=== PATIENT | male | born 1960 | race Caucasian/White ===

== ENCOUNTER 2022-06-26 10:12 | Emergency (ER) | payer BC ==
[2022-06-26] MEDS ORDERED: Ketorolac 30 MG/ML SDV IM ONE (10:48)
[2022-06-26] MEDS ORDERED: Orphenadrine 60 MG/2 ML Inj IM ONE (10:49)
== END 2022-06-26 11:07 | disposition home or self-care (01) ==
LOC: DL.ED 10:12
DX: M54.42 Lumbago with sciatica, left side (principal); M62.830 Muscle spasm of back; Z79.899 Other long term (current) drug therapy; Z79.82 Long term (current) use of aspirin
CPT/HCPCS: 96372; 99283; J1885; J2360